=== PATIENT | female | born 2000 | race Caucasian/White ===

== ENCOUNTER 2022-07-02 18:45 | Emergency (ER) | payer BC, MEDICAID, SELFPAY ==
[2022-07-02 19:09] VITALS: BP 117/80; PULSE 97; RESP 16; TEMP 36.6; O2SAT 98
--- NOTE | 2022-07-02 19:46 | W.ED.ABDPA2 ---
Documented by User: THUY Vance 07/02/22 22:12 HPI - Abdominal Pain General: Chief Complaint: Abdominal Pain Stated Complaint: hip/ lower abd pain Time Seen by Provider: 07/02/22 19:45 History of Present Illness: 22-year-old female comes in today with left flank pain radiating into the groin. Patient denies any history of renal stone. Patient denies any history of abdominal surgeries. Patient reports pain started this morning and has had nausea with it. Patient reports no diarrhea or constipation. Patient appears nontoxic. Patient appears in moderate to severe pain. Associated Symptoms: Reports dysuria and nausea Related Data: Date of Last Menstrual Period: 05/30/22 Review of Systems General: Reports: 10 or more systems reviewed and unremarkable except in HPI and below Card: Denies: chest pain Resp: Denies: dyspnea GI: Reports: abdominal pain and nausea : Reports: flank pain and dysuria Musc: Denies: neck pain Skin/Breast: Denies: rash [facility] Female Reproductive History: Date of last menstrual period: 05/30/22 Physical Exam Const: COMMON NORMALS: alert HENMT: COMMON NORMALS: normocephalic HEAD & SCALP: normocephalic Neck/C-Spine: COMMON NORMALS: full ROM Resp: COMMON NORMALS: normal respiratory effort and clear to auscultation bilaterally AUSCULTATION: clear to auscultation bilaterally Cardio: COMMON NORMALS: regular rate RATE: regular rate GI: COMMON NORMALS: Soft to palpation AUSCULTATION: Yes normoactive bowel sounds PALPATION: Yes Soft to palpation, Yes Tenderness to palpation present (GI) (Generalized, moderate), Yes Guarding due to palpation present (GI), No Rigid due to palpation and No Abdominal wall crepitus present : BLADDER/KIDNEY EXAM: Yes CVA tenderness on the left Back/Pelvis: GENERAL BACK: Yes CVA tenderness Extremity: COMMON NORMALS: normal to inspection Neuro: SENSORIUM/ORIENTATION: Yes alert Skin: COMMON NORMALS: no rashes or lesions noted GENERAL SKIN EXAM: no rashes or lesions noted Course ED course: 2114, reviewed patient with Dr. Fulton regarding abnormality noted on CT scan a 20 x 23 cm cystic mass. He recommended we talk to the GLASS EMBOSSER on-call for further recommendations. 2119, discussed patient with Dr. Marte, regarding abnormalities on the CT scan and patient. She suggested discussion with SCOREBOARD OPERATOR oncologist for further recommendations. 220, SCOREBOARD OPERATOR oncologist was unavailable at this time. Patient's pain is much better under control. We will set up patient to have an appointment with Dr. Gupta, SCOREBOARD OPERATOR oncologist, at [phone]. This number was given to me from the call center at [facility]. Patient agreed with plan and understands need to return to the ER for worsening symptoms such as fever, uncontrolled bleeding, or uncontrolled pain. Vital Signs: Vital signs: Vital Signs Temperature 97.9 F 07/02/22 19:09 Pulse Rate 97 07/02/22 19:09 Respiratory Rate 18 07/02/22 20:14 Blood Pressure 117/80 07/02/22 19:09 Pulse Oximetry 98 07/02/22 19:09 Oxygen Delivery Me thod 07/02/22 19:09 MDM - Abdominal Pain Medical Decision Making 22-year-old female comes in today with left lower quadrant abdominal pain. On exam patient has some CVA tenderness on the left side. Respirations are even lungs are clear to auscultation. Abdomen is soft with some mild tenderness and normal bowel sounds. Differential diagnosis includes but not limited to urinary calculi, constipation, ovarian cyst. CBC and CMP were unremarkable. Serum hCG was negative. CT scan of the abdomen pelvis noted a large cystic mass in the abdomen. Reviewed this with Dr. Fulton who felt it was most likely a very large ovarian cyst and recommended discussion with GLASS EMBOSSER. GLASS EMBOSSER, Dr Marte, recommended oncologist SCOREBOARD OPERATOR due to concerns for cancer with such a large cyst. I contacted [facility] whose SCOREBOARD OPERATOR oncologist [facility] but they offered appointment referral. Patient should contact their office on Monday morning for appointment follow-up. Patient reported understanding and agreed to plan. Patient was written prescription for hydrocodone for severe pain. Patient was also recommended use acetaminophen and ibuprofen for management. Patient also understands the reason for follow-up or return for worsening symptoms. Lab Data : 07/02/22 19:50 07/02/22 19:50 Labs/Radiology: Radiology Impressions Abdomen/Pelvis CT 07/02/22 19:56 IMPRESSION: 23 cm cystic lesion cannot be differentiated from the bilateral adnexa and displaces adjacent viscera and vessels extending into the upper abdomen. Ob Gyne consult recommended. Laboratory Results WBC 3.3 10^3/uL (4.5-13.0) L 07/02/22 19:50 RBC 4.42 10^6/uL (4.1-5.3) 07/02/22 19:50 Hgb 13.8 g/dL (11.5-15.3) 07/02/22 19:50 Hct 41.6 % (37.0-47.0) 07/02/22 19:50 MCV 94.1 fl (81-99) 07/02/22 19:50 MCH 31.2 pg (28.0-34.0) 07/02/22 19:50 MCHC 33.2 g/dL (30.0-36.0) 07/02/22 19:50 RDW 13.2 % (12.1-15.1) 07/02/22 19:50 Plt Count 318 10^3/cmm (130-400) 07/02/22 19:50 MPV 10.7 fL (7.4-10.4) H 07/02/22 19:50 Neut % (Auto) 69.1 % 07/02/22 19:50 Lymph % (Auto) 10.6 % 07/02/22 19:50 Houghton % (Auto) 17.9 % 07/02/22 19:50 Eos % (Auto) 1.8 % 07/02/22 19:50 Baso % (Auto) 0.6 % 07/02/22 19:50 Neut # (Auto) 2.28 10^3/uL (1.8-8.0) 07/02/22 19:50 Lymph # (Auto) 0.4 10^3/uL (1.5-6.5) L 07/02/22 19:50 Houghton # (Auto) 0.6 10^3/uL (0.2-0.9) 07/02/22 19:50 Eos # (Auto) 0.1 10^3/uL (0.0-0.8) 07/02/22 19:50 Baso # (Auto) 0.0 10^3/uL (0.0-0.1) 07/02/22 19:50 Nucleated RBC % (auto) 0 % 07/02/22 19:50 Nucleated RBCs # 0.0 /100WBC 07/02/22 19:50 Sodium 136 mmol/L (136-145) 07/02/22 19:50 Potassium 4.2 mmol/L (3.5-5.1) 07/02/22 19:50 Chloride 100 mmol/L (98-107) 07/02/22 19:50 Carbon Dioxide 23 mmol/L (22-29) 07/02/22 19:50 Anion Gap 17.2 (5-19) 07/02/22 19:50 BUN 4 mg/dL (6-20) L 07/02/22 19:50 Creatinine 0.4 mg/dL (0.5-0.9) L 07/02/22 19:50 GFR Calculation 203.5 mL/min (90-130) H 07/02/22 19:50 Glucose 76 mg/dL (65-115) 07/02/22 19:50 Calculated Osmolality 278 mOsm/kg (285-295) L 07/02/22 19:50 Calcium 9.4 mg/dL (8.5-10.5) 07/02/22 19:50 Total Bilirubin 0.5 mg/dL (0.15-1.2) 07/02/22 19:50 AST 19 U/L (0-32) 07/02/22 19:50 ALT 14 U/L (0-33) 07/02/22 19:50 Alkaline Phosphatase 64 IU/L (35-105) 07/02/22 19:50 Total Protein 7.8 g/dL (6.6-8.7) 07/02/22 19:50 Albumin 4.8 g/dL (3.5-5.2) 07/02/22 19:50 Globulin 3.0 g/dL (1.3-4.6) 07/02/22 19:50 Lipase 37 U/L (13-60) 07/02/22 19:50 HCG, Qual Negative (Negative) 07/02/22 19:50 Discharge Plan Discharge Patient Disposition: Home Clinical Impression: Ovarian cystic mass Qualifiers: Laterality: unspecified laterality Qualified Code(s): N83.209 - Unspecified ovarian cyst, unspecified side Condition: Stable Prescriptions: New hydrocodone-acetaminophen 5-325 mg tablet 1 tab PO Q8H PRN (Reason: pain (scale score 7-10)) Qty: 14 0RF Discharge Orders: Discharge ED (Routine); Ordered 07/02/22 Ordered By: Vaibhav Kulkarni Discharge Diet: Usual diet Discharge Activity: Increase activity as tolerated Patient Instructions: Ovarian Cyst (ED) Activity Restrictions/Additional Instructions: Contact Dr. Gupta office, , in [facility] on Monday morning for appointment regarding ovarian mass. State that you were seen in the emergency room tonight and was diagnosed with a large mass to the abdomen and was recommended for follow-up appointment with a women's health oncologist. I will also put a case management referral in to help with appointment. Use acetaminophen and ibuprofen to control pain. Use hydrocodone for severe pain. Return to ER for worsening symptoms such as bleeding more than 1 pad an hour, fever greater than 100.4, or uncontrolled pain. Coding Level of Care Code ED Auto Former Machine Operator for Chg Fwd Exam Comprehensive Documented by User: Nils Fulton MD 07/02/22 22:14 HPI - Abdominal Pain General: Chief Complaint: Abdominal Pain Stated Complaint: hip/ lower abd pain Time Seen by Provider: 07/02/22 19:45 Course Vital Signs: Vital signs: Vital Signs Temperature 97.9 F 07/02/22 19:09 Pulse Rate 97 07/02/22 19:09 Respiratory Rate 18 07/02/22 20:14 Blood Pressure 117/80 07/02/22 19:09 Pulse Oximetry 98 07/02/22 19:09 Oxygen Delivery Me thod 07/02/22 19:09 MDM - Abdominal Pain Medical Decision Making 22-year-old female comes in today with left lower quadrant abdominal pain. On exam patient has some CVA tenderness on the left side. Respirations are even lungs are clear to auscultation. Abdomen is soft with some mild tenderness and normal bowel sounds. Differential diagnosis includes but not limited to urinary calculi, constipation, ovarian cyst. CBC and CMP were unremarkable. Serum hCG was negative. CT scan of the abdomen pelvis noted a large cystic mass in the abdomen. Reviewed this with Dr. Fulton who felt it was most likely a very large ovarian cyst and recommended discussion with GLASS EMBOSSER. GLASS EMBOSSER, Dr Marte, recommended oncologist SCOREBOARD OPERATOR due to concerns for cancer with such a large cyst. I contacted [facility] whose SCOREBOARD OPERATOR oncologist was off tonight but they offered appointment referral. Patient should contact their office on Monday morning for appointment follow-up. Patient reported understanding and agreed to plan. Patient was written prescription for hydrocodone for severe pain. Patient was also recommended use acetaminophen and ibuprofen for management. Patient also understands the reason for follow-up or return for worsening symptoms. Discussed patient with above midlevel and reviewed the films as well and agree with history and physical and plan patient is to return if she has any worsening symptoms and she is to follow-up with Lavelle Marcus in [place]. Lab Data : 07/02/22 19:50 07/02/22 19:50 Labs/Radiology: Radiology Impressions Abdomen/Pelvis CT 07/02/22 19:56 IMPRESSION: 23 cm cystic lesion cannot be differentiated from the bilateral adnexa and displaces adjacent viscera and vessels extending into the upper abdomen. Ob Gyne consult recommended. Laboratory Results WBC 3.3 10^3/uL (4.5-13.0) L 07/02/22 19:50 RBC 4.42 10^6/uL (4.1-5.3) 07/02/22 19:50 Hgb 13.8 g/dL (11.5-15.3) 07/02/22 19:50 Hct 41.6 % (37.0-47.0) 07/02/22 19:50 MCV 94.1 fl (81-99) 07/02/22 19:50 MCH 31.2 pg (28.0-34.0) 07/02/22 19:50 MCHC 33.2 g/dL (30.0-36.0) 07/02/22 19:50 RDW 13.2 % (12.1-15.1) 07/02/22 19:50 Plt Count 318 10^3/cmm (130-400) 07/02/22 19:50 MPV 10.7 fL (7.4-10.4) H 07/02/22 19:50 Neut % (Auto) 69.1 % 07/02/22 19:50 Lymph % (Auto) 10.6 % 07/02/22 19:50 Houghton % (Auto) 17.9 % 07/02/22 19:50 Eos % (Auto) 1.8 % 07/02/22 19:50 Baso % (Auto) 0.6 % 07/02/22 19:50 Neut # (Auto) 2.28 10^3/uL (1.8-8.0) 07/02/22 19:50 Lymph # (Auto) 0.4 10^3/uL (1.5-6.5) L 07/02/22 19:50 Houghton # (Auto) 0.6 10^3/uL (0.2-0.9) 07/02/22 19:50 Eos # (Auto) 0.1 10^3/uL (0.0-0.8) 07/02/22 19:50 Baso # (Auto) 0.0 10^3/uL (0.0-0.1) 07/02/22 19:50 Nucleated RBC % (auto) 0 % 07/02/22 19:50 Nucleated RBCs # 0.0 /100WBC 07/02/22 19:50 Sodium 136 mmol/L (136-145) 07/02/22 19:50 Potassium 4.2 mmol/L (3.5-5.1) 07/02/22 19:50 Chloride 100 mmol/L (98-107) 07/02/22 19:50 Carbon Dioxide 23 mmol/L (22-29) 07/02/22 19:50 Anion Gap 17.2 (5-19) 07/02/22 19:50 BUN 4 mg/dL (6-20) L 07/02/22 19:50 Creatinine 0.4 mg/dL (0.5-0.9) L 07/02/22 19:50 GFR Calculation 203.5 mL/min (90-130) H 07/02/22 19:50 Glucose 76 mg/dL (65-115) 07/02/22 19:50 Calculated Osmolality 278 mOsm/kg (285-295) L 07/02/22 19:50 Calcium 9.4 mg/dL (8.5-10.5) 07/02/22 19:50 Total Bilirubin 0.5 mg/dL (0.15-1.2) 07/02/22 19:50 AST 19 U/L (0-32) 07/02/22 19:50 ALT 14 U/L (0-33) 07/02/22 19:50 Alkaline Phosphatase 64 IU/L (35-105) 07/02/22 19:50 Total Protein 7.8 g/dL (6.6-8.7) 07/02/22 19:50 Albumin 4.8 g/dL (3.5-5.2) 07/02/22 19:50 Globulin 3.0 g/dL (1.3-4.6) 07/02/22 19:50 Lipase 37 U/L (13-60) 07/02/22 19:50 HCG, Qual Negative (Negative) 07/02/22 19:50 Discharge Plan Discharge Patient Disposition: Home Clinical Impression: Ovarian cystic mass Qualifiers: Laterality: unspecified laterality Qualified Code(s): N83.209 - Unspecified ovarian cyst, unspecified side Condition: Stable Prescriptions: New hydrocodone-acetaminophen 5-325 mg tablet 1 tab PO Q8H PRN (Reason: pain (scale score 7-10)) Qty: 14 0RF Discharge Orders: Discharge ED (Routine); Ordered 07/02/22 Ordered By: Vaibhav Kulkarni Discharge Diet: Usual diet Discharge Activity: Increase activity as tolerated Patient Instructions: Ovarian Cyst (ED) Activity Restrictions/Additional Instructions: Contact Dr. Gupta office, , in [facility] on Monday morning for appointment regarding ovarian mass. State that you were seen in the emergency room tonight and was diagnosed with a large mass to the abdomen and was recommended for follow-up appointment with a women's health oncologist. I will also put a case management referral in to help with appointment. Use acetaminophen and ibuprofen to control pain. Use hydrocodone for severe pain. Return to ER for worsening symptoms such as bleeding more than 1 pad an hour, fever greater than 100.4, or uncontrolled pain. Coding Level of Care Code ED Auto Former Machine Operator for Edel Fwrose marie Exam Comprehensive
--- NOTE | 2022-07-02 19:56 | CTR_ITS ---
PROCEDURE INFORMATION: Exam: CT Abdomen And Pelvis Without Contrast Exam date and time: 07/02/2022 8:41 PM Age: 22 years old Clinical indication: Abdominal pain; Acute; Additional info: Left flank pain TECHNIQUE: Imaging protocol: Computed tomography of the abdomen and pelvis without contrast. Radiation optimization: All CT scans at this facility use at least one of these dose optimization techniques: automated exposure control; mA and/or kV adjustment per patient size (includes targeted exams where dose is matched to clinical indication); or iterative reconstruction. COMPARISON: No relevant prior studies available. RADIATION DOSE METRICS: Total DLP (mGy-cm): 707.06 FINDINGS: Liver: Normal. No mass. Gallbladder and bile ducts: Normal. No calcified stones. No ductal dilation. Pancreas: Normal. No ductal dilation. Spleen: Normal. No splenomegaly. Adrenal glands: Normal. No mass. Kidneys and ureters: Normal. No hydronephrosis. Stomach and bowel: Unremarkable. No obstruction. No mucosal thickening. Appendix: No evidence of appendicitis. Intraperitoneal space: There is a 20.3 x 23.0 cm cystic lesion which cannot be differentiated from the bilateral adnexa extending into the upper abdomen displacing adjacent viscera/vessels. Vasculature: Unremarkable. No abdominal aortic aneurysm. Lymph nodes: Unremarkable. No enlarged lymph nodes. Urinary bladder: Unremarkable as visualized. Reproductive: Unremarkable as visualized. Bones/joints: Unremarkable. No acute fracture. Soft tissues: Unremarkable. CT/CT kidney stone [id number] IMPRESSION: 23 cm cystic lesion cannot be differentiated from the bilateral adnexa and displaces adjacent viscera and vessels extending into the upper abdomen. Ob Gyne consult recommended.
[2022-07-02 20:01] LABS: Basophils % 0.6 %; Eosinophils # 0.1 10^3/uL (0.0-0.8); Eosinophils % 1.8 %; Hematocrit 41.6 % (37.0-47.0); Hemoglobin 13.8 g/dL (11.5-15.3); Lymphocytes # 0.4 10^3/uL (1.5-6.5); Lymphocytes % 10.6 %; Mean Corpuscular HGB Conc 33.2 g/dL (30.0-36.0); Mean Corpuscular Hemoglobin 31.2 pg (28.0-34.0); Mean Corpuscular Volume 94.1 fl (81-99); Mean Platelet Volume 10.7 fL (7.4-10.4); Monocytes # 0.6 10^3/uL (0.2-0.9); Monocytes % 17.9 %; Neutrophils # 2.28 10^3/uL (1.8-8.0); Neutrophils % 69.1 %; Nucleated Red Blood Cells % 0 %; Platelet Count 318 10^3/cmm (130-400); Red Blood Count 4.42 10^6/uL (4.1-5.3); Red Cell Distribution Width 13.2 % (12.1-15.1); White Blood Count 3.3 10^3/uL (4.5-13.0)
[2022-07-02] MEDS: ondansetron 2 mg/ML SDV 2 mL 4 MG IVP (20:10)
[2022-07-02] MEDS: ketorolac 30 mg/mL INJ 15 MG IVP (20:11)
[2022-07-02 20:14] VITALS: RESP 18
[2022-07-02] MEDS: morphine 4 mg/mL SDV 1 mL 2 MG IVP (20:14)
[2022-07-02 20:24] LABS: HCG, Serum Qual Negative (Negative)
[2022-07-02 20:31] LABS: Alanine Aminotransferase 14 U/L (0-33); Albumin Level 4.8 g/dL (3.5-5.2); Alkaline Phosphatase 64 IU/L (35-105); Anion Gap 17.2 (5-19); Aspartate Amino Transferase 19 U/L (0-32); Blood Urea Nitrogen 4 mg/dL (6-20); Calcium 9.4 mg/dL (8.5-10.5); Carbon Dioxide 23 mmol/L (22-29); Chloride 100 mmol/L (98-107); Glomerular Filtration Rate 203.5 mL/min (90-130); Glucose 76 mg/dL (65-115); Lipase 37 U/L (13-60); Osmolality Calculated 278 mOsm/kg (285-295); Potassium 4.2 mmol/L (3.5-5.1); Sodium 136 mmol/L (136-145); Total Bilirubin 0.5 mg/dL (0.15-1.2); Total Protein 7.8 g/dL (6.6-8.7)
[2022-07-02 22:20] VITALS: BP 109/66; PULSE 90; RESP 16; O2SAT 99
--- NOTE | 2022-07-04 16:14 | DCPLANNER ---
Addendum entered by January Sorto 07/27/22 12:00: Patient has an appointment scheduled for 07.27.22 at [facility] - Dr. Gupta. Clinic called patient with appointment information. Addendum entered by January Sorto 07/05/22 08:44: administrative office manager confirmed that clinic received patients information Original Note: administrative office manager had message to [facility] a [facility] Dr. Gupta. administrative office manager called clinic, got the fax number and faxed patients information to the clinic, and had images uploaded to the cloud.
== END 2022-07-02 22:21 | disposition home or self-care (01) ==
PROVIDERS: Emergency Medicine; Emergency Provider Nurse Practitioner Family
DX: N83.209 Unspecified ovarian cyst, unspecified side (principal)
CPT/HCPCS: 74176; 80053; 83690; 84703; 85025; 96374; 96375; 99285; J1885; J2270; J2405

== ENCOUNTER 2023-01-13 10:49 | Outpatient (CLI) | payer BC, MEDICAID, SELFPAY ==
--- NOTE | 2023-01-13 11:09 | US_ITS ---
WS: [id number] ULTRASOUND OB COMPLETE TECHNIQUE: Complete ultrasound. CLINICAL INFORMATION: 15 WEEKS GESTATION COMPARISON: None. FINDINGS: Cervix measures 4.1 cm Single interuterine gestation is identified with transverse presentation. Placenta is posterior. Placenta grade 0. Normal amniotic fluid volume. cardiac activity: 144 BPM. Normal JOELLE 18.6 cm AGA: 21w1d ELHAM by ultrasound: 05/25/2023 Estimated weight: 395 g; 0 lbs. 14 oz. 46th percentile based on ultrasound BDP: 4.9 cm = 20w5d HC: 18.4 cm = 20w5d AC: 16.1 cm = 21w1d FEMUR LENGTH: 3.5 cm = 21w0d Anatomic survey: Anatomic survey is normal. Normal stomach. Kidneys and bladder are normal. Normal 3 vessel cord. Norm al 3 vessel cord insertion. Normal 4 chamber heart. Normal spine. Intracranial contents are normal. N ormal posterior fossa and cisterna magna. US/US OB >= 14 weeks fetus [id number] IMPRESSION: 1. Single intrauterine with visualized cardiac activity. AGA 21w1d w ith ELHAM 05/25/2023. 2. Closed cervix measuring 4.1 cm 3. Placenta is posterior. No evidence of abruption or previa. 4. presentation is transverse. 5. anatomic survey is normal. 6. Normal amniotic fluid volume. JOELLE 18.6 cm
== END 2023-01-13 10:50 | disposition home or self-care (01) ==
PROVIDERS: PCP Family Medicine; Visit Provider Family Medicine
DX: Z36.89 Encounter for other specified antenatal screening (principal); Z3A.21 21 weeks gestation of pregnancy
CPT/HCPCS: 76805

== ENCOUNTER 2023-05-14 21:32 | Outpatient (CLI) | payer BC, MEDICAID, SELFPAY ==
[2023-05-14] VITALS (8 sets, daily range): BP systolic 114–115; BP diastolic 69–72; PULSE 100–117; RESP 16; TEMP 36.2; O2SAT 97–98; BMI 39.2
== END 2023-05-14 22:20 | disposition home or self-care (01) ==
LOC: OPOB 21:33 → OBGYN 21:33
PROVIDERS: PCP Family Medicine; Visit Provider Family Medicine
DX: O26.899 Other specified pregnancy related conditions, unspecified trimester (principal); R10.2 Pelvic and perineal pain; R11.0 Nausea; Z3A.00 Weeks of gestation of pregnancy not specified
CPT/HCPCS: 59025; 99211

== ENCOUNTER 2023-05-24 14:47 | Outpatient (CLI) | payer BC, MEDICAID, SELFPAY ==
[2023-05-24 15:10] VITALS: BMI 41.3
[2023-05-24 15:32] VITALS: BP 114/62; PULSE 100
[2023-05-24 15:38] LABS: Basophils % 0.3 %; Eosinophils # 0.1 10^3/uL (0.0-0.8); Eosinophils % 0.5 %; Hemoglobin 11.2 g/dL (11.5-15.3); Lymphocytes # 1.9 10^3/uL (1.5-6.5); Lymphocytes % 17.2 %; Mean Corpuscular HGB Conc 32.9 g/dL (30.0-36.0); Mean Corpuscular Hemoglobin 30.1 pg (28.0-34.0); Mean Corpuscular Volume 91.4 fl (81-99); Mean Platelet Volume 10.4 fL (7.4-10.4); Monocytes # 0.9 10^3/uL (0.2-0.9); Monocytes % 7.9 %; Neutrophils # 8.03 10^3/uL (1.8-8.0); Neutrophils % 73.6 %; Nucleated Red Blood Cells % 0 %; Platelet Count 318 10^3/cmm (130-400); Red Blood Count 3.72 10^6/uL (4.1-5.3); Red Cell Distribution Width 14.4 % (12.1-15.1); White Blood Count 10.9 10^3/uL (4.5-13.0)
[2023-05-24 15:51] VITALS: BP 112/75; PULSE 109
[2023-05-24 15:56] LABS: Bilirubin Urine Neg (Negative); Blood Urine Neg (Negative); Glucose Urine UA Norm (Normal); Ketones Urine Negative (Negative); Leukocyte Esterase Urine Negative (Negative); Nitrate Urine Negative (Negative); Protein Urine Neg (Negative); Specific Gravity, Urine 1.015 (1.005-1.030); Urine Appearance Clear (CLEAR); Urine Color Yellow (Yellow); Urobilinogen Urine Norm (Negative); pH Urine 7 (5-7)
[2023-05-24 16:03] LABS: Alanine Aminotransferase 8 U/L (0-33); Albumin Level 3.8 g/dL (3.5-5.2); Alkaline Phosphatase 125 U/L (35-105); Anion Gap 15.9 (5-19); Aspartate Amino Transferase 14 U/L (0-32); Blood Urea Nitrogen 4 mg/dL (6-20); Calcium 8.6 mg/dL (8.5-10.5); Carbon Dioxide 19 mmol/L (22-29); Chloride 104 mmol/L (98-107); Globulin 2.9 g/dL (1.3-4.6); Glomerular Filtration Rate 283.6 mL/min (90-130); Glucose 66 mg/dL (65-115); Osmolality Calculated 275 mOsm/kg (285-295); Potassium 3.9 mmol/L (3.5-5.1); Sodium 135 mmol/L (136-145); Total Bilirubin 0.4 mg/dL (0.15-1.2); Total Protein 6.7 g/dL (6.6-8.7); Uric Acid 3.6 mg/dL (2.4-5.7)
[2023-05-24 16:09] LABS: Bacteria Urine TRACE /hpf; Mucus Urine TRACE /hpf; RBC Urine 0-4 /hpf (0-2); WBC Urine 0-4 /hpf (0-5)
[2023-05-24 16:10] LABS: Add Urine Culture? No; Amorphous Sediment Urine TRACE /hpf
[2023-05-24 16:11] VITALS: BP 111/68; PULSE 100
[2023-05-24 16:14] LABS: UPRO/UCREAT Ratio 0.19 mg/mg CR; Urine Creatinine 73 mg/dL (28-217); Urine Protein Random 14 mg/dL
[2023-05-24 16:30] VITALS: BP 111/68; PULSE 100
== END 2023-05-24 16:30 | disposition home or self-care (01) ==
LOC: OPOB 14:52 → OBGYN 14:56 → OPOB 15:29 → OBGYN 15:31
PROVIDERS: PCP Family Medicine; Visit Provider Family Medicine
DX: O16.9 Unspecified maternal hypertension, unspecified trimester (principal); Z3A.00 Weeks of gestation of pregnancy not specified
CPT/HCPCS: 36415; 59025; 80053; 81001; 82570; 84156; 84550; 85025; 99211

== ENCOUNTER 2023-05-29 04:32 | Inpatient (IN) | payer MEDICAID, SELFPAY ==
[2023-05-28] VITALS (9 sets, daily range): BP systolic 111–133; BP diastolic 68–83; PULSE 80–105; RESP 15; TEMP 36.7; BMI 40.4
[2023-05-28 21:13] LABS: Basophils % 0.3 %; Eosinophils # 0.1 10^3/uL (0.0-0.8); Eosinophils % 0.9 %; Hematocrit 32.4 % (37.0-47.0); Hemoglobin 10.6 g/dL (11.5-15.3); Lymphocytes # 1.6 10^3/uL (1.5-6.5); Lymphocytes % 19.9 %; Mean Corpuscular HGB Conc 32.7 g/dL (30.0-36.0); Mean Corpuscular Hemoglobin 29.7 pg (28.0-34.0); Mean Corpuscular Volume 90.8 fl (81-99); Mean Platelet Volume 10.3 fL (7.4-10.4); Monocytes # 0.8 10^3/uL (0.2-0.9); Monocytes % 9.6 %; Neutrophils # 5.51 10^3/uL (1.8-8.0); Nucleated Red Blood Cells % 0 %; Platelet Count 296 10^3/cmm (130-400); Red Blood Count 3.57 10^6/uL (4.1-5.3); Red Cell Distribution Width 14.3 % (12.1-15.1)
[2023-05-28] MEDS: miSOPROStol 100 mcg tablet 25 MCG VAGINAL (21:37)
[2023-05-28] MEDS: dextrose 5%-lactated ringers 1,000 ML 125 ML IV (23:22)
[2023-05-28] MEDS: ampicillin 2,000 MG in sodium chloride 0.9% (plus) 50 ML 100 MG IV (23:23)
[2023-05-29] VITALS (193 sets, daily range): BP systolic 105–172; BP diastolic 62–96; PULSE 72–125; TEMP 36.3–36.9; O2SAT 85–99
[2023-05-29] MEDS: miSOPROStol 100 mcg tablet 25 MCG VAGINAL (01:54)
[2023-05-29] MEDS: ampicillin 1,000 MG in sodium chloride 0.9% (plus) 50 ML 100 MG IV ×5 (03:30→22:12)
[2023-05-29] MEDS: lactated ringers 1,000 ML 999 ML IV ×2 (04:40→05:44)
--- NOTE | 2023-05-29 06:23 | ANES.PREANE2 ---
Pre-Anesthetic Assessment Height/Weight: Height 1.55 m Weight 97.069 kg Temp Pulse Resp BP O2 Del Method 98.4 F 87 15 128/65 Room Air 05/29/23 03:45 05/29/23 03:34 05/28/23 20:47 05/29/23 03:34 05/28/23 21:00 Preop Diagnosis: IUP Labor epidural Familial anesthetic complications: None Was Beta Deni taken within 24 hours: N/A Was Clonidine taken within 24 hours: N/A Social Tobacco (1/2 ppd x 4 years ) and No alcohol Exam alert, oriented x 3, clear to auscultation bilaterally and regular rate & rhythm Airway Submandibular: within normal limits Cervical ROM: within normal limits Mallampati: Class III Dentition: full History/ROS No significant history except as noted Pulmonary None reported CV/HEM Hypertension None reported Hepatic None reported GI None reported Metabolic Morbid Obesity [facility] [place] None reported Neuropsych None reported Anesthetic Plan ASA status: 2 Anesthesia: Anesthesia Evaluation and Regional (specify below) (epidural ) Risk of > 500 ml blood loss (7ml/kg in children): No Medications/Allergies Home Medications Medication Instructions Recorded Confirmed Last Taken Type 1 tab PO DAILY 05/14/23 05/28/23 05/26/23 History Allergies Allergy/AdvReac Type Severity Reaction Status Date / Time ibuprofen Allergy Unknown ADR-Halluci Verified 05/28/23 21:18 nating Current Medications Generic Name Dose Route Start Last Admin Trade Name Freq PRN Reason Stop Dose Admin Dextrose/Lactated Ringer's 1,000 mls @ 125 mls/hr 05/28/23 21:00 05/28/23 23:22 Dextrose 5%-Lactated Ringers IV 125 mls/hr .Q8H LEELA Administration Ampicillin Sodium 1,000 mg/ 50 mls @ 100 mls/hr 05/29/23 01:45 05/29/23 03:30 Sodium Chloride IV 100 mls/hr Q4H LEELA Administration Protocol Lactated Ringer's 1,000 mls @ 999 mls/hr 05/29/23 04:31 05/29/23 05:44 Lactated Ringers IV 999 mls/hr .Q1H1M PRN Administration See label comments PFSH Anesthesia Female Reproductive History Date of last menstrual period: 08/27/22 : 2 Data Anesthesia 05/28/23 21:00 Short CBC 07/02/23 Range/Units 21:00 WBC 8.0 (4.5-13.0) 10^3/uL Hgb 10.6 L (11.5-15.3) g/dL Hct 32.4 L (37.0-47.0) % MCV 90.8 (81-99) fl Plt Count 296 (130-400) 10^3/cmm Neut % (Auto) 69.0 % Neut # (Auto) 5.51 (1.8-8.0) 10^3/uL Cardiac Studies: No Data to Display Anesthesia Procedures Epidural Time Out Performed: Yes Consents Signed: Procedure Consent Consent: requested by attending/covering physician, from patient, risks and benefits reviewed and patient agrees to proceed Lumbar Level: L4-L5 Epidural position: sitting Epidural procedure: sterile prep of area, 1% lidocaine to numb the area, 18 g needle, negative for paresthesia passed, neg for paresthesia, test dose given, 1.5% xylocaine 1:200k epi, placed PCEA, no systemic response, sterile dressing applied, L.U.D. no apparent complications and 0.2% Ropiavacaine @ mls/hr (10) Additional Comments: LULU 6 cm; Pt educated on GRINDER TENDER and reports decreased pain with contractions.
--- NOTE | 2023-05-29 07:29 | P.HP_ITS ---
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 The patient had unremarkable labs. Patient's has been uncomplicated except for some elevated blood pressures towards the end but nothing sustained. Preeclampsia work-up has been negative. The patient is GBS positive. Patient was started on ampicillin and given 2 d oses of Cytotec overnight. The patient did develop a contraction pattern every 3 to 4 minutes. The patient did become more effaced but never dilated more than 1 cm. Patient currently has an epidural and is luisito every 3 to 4 minutes at this time. Present Details : 2 Para: 0 Date of Last Menstrual Period: 08/27/22 Calculated Date of Delivery: 06/03/23 Gestational Age Based on Last Menstrual Period: 39 Obstetrical complications: none Labs Rubella: Immune RPR: Negative GBS: Positive Review of Systems General: Reports: 10 or more systems reviewed and unremarkable except in HPI and below Card: Denies: chest pain Resp: Denies: dyspnea Musc: Denies: neck pain Skin/Breast: Denies: rash Medications/Allergies Home Medications Medication Instructions Recorded Confirmed Last Taken Type 1 tab PO DAILY 05/14/23 05/28/23 05/26/23 History Allergies Allergy/AdvReac Type Severity Reaction Status Date / Time ibuprofen Allergy Unknown ADR-Halluci Verified 05/28/23 21:18 nating History History History 2 Term Miscarriages/Ectopic Living Children 0 Vitals/I&O/Wt Last Vital Signs Temp 98.4 F 05/29/23 03:45 Pulse 108 H 05/29/23 07:25 Resp 15 05/28/23 20:47 BP 136/78 05/29/23 07:25 Pulse Ox 96 05/29/23 07:22 O2 Del Method Room Air 05/28/23 21:00 05/28/23 05/29/23 05/29/23 22:59 06:59 14:59 Intake Total 1000 / 1000 Balance 1000 / 1000 Weight last 48 hrs Weight 97.069 kg Physical Exam Const: COMMON NORMALS: no acute distress and alert HENMT: COMMON NORMALS: normocephalic and moist oral mucous membranes Resp: COMMON NORMALS: normal respiratory effort and clear to auscultation bilaterally Cardio: COMMON NORMALS: no JVD, regular rate and regular rhythm GI: OTHER: Gravid : COMMON NORMALS: Yes normal external appearance Extremity: COMMON NORMALS: no clubbing, cyanosis or edema Neuro: COMMON NORMALS: patient oriented x3 and moves all extremities Psych: COMMON NORMALS: mental status grossly normal and normal affect Skin: COMMON NORMALS: no rashes or lesions noted Data 05/28/23 21:00 A&P Assessment and plan (1) Term : Continue induction. Monitor for progression at this time. Add Pitocin if cervical change is not noted. (2) GBS (group B Streptococcus carrier), +RV culture, currently : Continue ampicillin Attestations Medical Necessity Statement*: Admit for induction of labor. Anticipate at least 2 midnight stay. Coding Level of Care Code Acute Code for Chg Fwd Diagnoses Term Z34.90 GBS (group B Streptococcus carrier), +RV culture, currently O99.820
[2023-05-29] MEDS: dextrose 5%-lactated ringers 1,000 ML 125 ML IV ×2 (13:24→22:10)
[2023-05-30] VITALS (25 sets, daily range): BP systolic 122–162; BP diastolic 70–112; PULSE 76–112; RESP 16–18; TEMP 36.7–36.8; O2SAT 97–99
[2023-05-30] MEDS: ceFAZolin 2,000 MG in sodium chloride 0.9% (plus) 50 ML 100 MG IV (00:24)
[2023-05-30] MEDS: citric acid-sodium citrate 30 mL UDC PO (00:24)
[2023-05-30] MEDS: metoclopramide 5 mg/mL SDV 2 mL 10 MG IVP (00:24)
[2023-05-30] MEDS: famotidine 20 mg/2 mL INJ IVP (00:25)
[2023-05-30] MEDS: lidocaine 2% INJ 20 mL INJECTION (01:48)
--- NOTE | 2023-05-30 02:18 | P.ANESUD_ITS ---
Pre-Anesthetic Update Pre-Anesthetic Assessment: Date of Surgery/Procedure: 05/30/23 Preop Patti gnosis: IUP Proposed Procedure: Operation Date: 05/30/23 00:50 Proposed Procedures p Section(Not Applicable) - Srinivasan Lee MD Any changes to Pre-Anesthetic Assessment?: No Changes from Pre-Anesthetic Assessment: NO changes Section discussed epidural use discussed along with possibility of GA. Last Intake: 05/29/23 0300 Labs Last 48hrs: Short CBC 05/28/23 Range/Units 21:00 WBC 8.0 (4.5-13.0) 10^3/ uL Hgb 10.6 L (11.5-15.3) g/dL Hct 32.4 L (37.0-47.0) % MCV 90.8 (81-99) fl Plt Count 296 (130-400) 10^3/c mm Neut % (Auto) 69.0 % Neut # (Auto) 5.51 (1.8-8.0) 10^3/u L Vitals: Temperature 97.3 F L 05/29/23 20:00 Temperature Source Axillary 05/29/23 03:45 Pulse Rate 112 H 05/30/23 00:35 Pulse Rhythm Regular 05/29/23 20:00 Respiratory Rate 15 05/28/23 20:47 Respiratory Effort Spontaneous, Non- Labored 05/29/23 20:00 Respiratory Depth Normal 05/29/23 20:00 Respiratory Patter n Normal 05/29/23 20:00 Blood Pressure 127/78 05/30/23 00:35 Pulse Oximetry 97 05/29/23 14:27 Oxygen Delivery Me thod Room Air 05/28/23 21:00 Cardiac Studies: No Data to Display
[2023-05-30] MEDS: dextrose 5%-lactated ringers 1,000 ML 125 ML IV ×2 (05:36→14:14)
[2023-05-30] MEDS: ketorolac 30 mg/mL INJ IVP ×3 (07:42→20:50)
[2023-05-30] MEDS: ferrous sulfate EC 325 mg Tablet PO ×2 (07:43→18:08)
[2023-05-30] MEDS: docusate sodium 100 mg Capsule PO ×2 (07:44→18:08)
[2023-05-30] MEDS: prenatal vitamin Capsule 1 CAP PO (07:44)
--- NOTE | 2023-05-30 09:49 | PM.OP ---
Operative Report Date of procedure: May 30, 2023 Pre-op diagnosis: Term intrauterine , failure to progress Preop Diagnosis IUP Post-op diagnosis: same Post-op findings: Viable female Procedure done: Primary low transverse Surgeon: Harry Lee MD Robotics Specialist: Dr. Fortune Anesthesia: Epidural and Other Estimated blood loss (mL): 400 Complications: None Brief History: This is a 22-year-old G2, P1 that presented for induction of labor at 39 weeks 2 days. Patient was started on Cytotec and received Pitocin all day. Patient mated to complete dilation but was unable to progress any further. Like outlet was sadly too small to deliver vaginally so was determined to be the best option. Procedure: Patient was taken to the operating room where epidural anesthesia was found to be adequate. She was prepped and draped in the normal sterile fashion in a dorsal supine position with a leftward tilt. Skin incision was made with scalpel and carried out to the underlying layer of fascia which was incised in the midline. Fascial incision was then extended laterally manually. The superior aspect of the fascial incision was grasped with Mykel clamps elevated and dissected off the rectus muscles with Moreno's. The inferior aspect of the fascial incision was grasped with Adolfo's and in likewise manner was elevated and dissected off with Moreno's. Peritoneum was then entered digitally and extended with good visualization of the bladder. Daniela O retractor was inserted. Uterine incision was then created in a transverse fashion in the lower uterine segment with scalpel and extended digitally. Clear fluid noted. Infant's head was delivered atraumatically nose and mouth suctioned with bulb, cord clamped and cut and handed off to waiting nursing staff. The placenta was then expressed and uterus exteriorized from the abdomen. And cleared of all clots and debris. Uterus was noted to be boggy and manual massage was performed. 1 g of TXA was also administered. Uterine incision was then repaired in a running locked fashion with 0 Vicryl. A second suture of the same was then used to imbricate the incision. Excellent hemostasis was noted. Uterus was then returned to the abdomen, gutters were cleared of all clots and debris. . Fascia was then closed with 0 Vicryl in a running fashion. Subcutaneous tissue was closed with 3-0 Vicryl and skin was closed with 4-0 Monocryl on a Adryan needle. The incision was reinforced with Steri-Strips and pressure bandage was placed over the wound. Sponge, laps, and needle count was correct x2. 2 g Ancef was given prior to the procedure. Patient was taken recovery in stable condition.
--- NOTE | 2023-05-30 09:54 | P.PN_ITS ---
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 Patient was initially presented for induction of labor but was failure to progress. Therefore, was decided to be the best option for delivery. She underwent primary low-transverse without complication. The patient has recovered well and bleeding and pain are well controlled. Is up sitting in a chair today. No significant concerns this morning. Vital signs stable. Labor: Station: 0 Amniotic Membrane Status: Ruptured Monitor Mode: External Contraction Pattern: Irregular Vitals/I&O/Wt Last Vital Signs Temp 98.3 F 05/30/23 04:05 Pulse 80 05/30/23 04:35 Resp 16 05/30/23 04:35 BP 140/82 05/30/23 04:35 Pulse Ox 97 05/30/23 02:45 O2 Del Method Room Air 05/30/23 02:45 05/29/23 05/30/23 05/30/23 22:59 06:59 14:59 Intake Total 1230.00 / 8985.503 6791.434 / 3477.651 Output Total 475 / 475 1250 / 1725 100 / 100 Balance 755.00 / 1269.217 483.434 / 1752.651 -100 / -100 Weight last 48 hrs Weight 97.069 kg Physical Exam Const: COMMON NORMALS: no acute distress, patient oriented x3 and alert HENMT: COMMON NORMALS: normocephalic and moist oral mucous membranes HEAD & SCALP: normocephalic Neck/C-Spine: COMMON NORMALS: no JVD Resp: COMMON NORMALS: normal respiratory effort and clear to auscultation bilaterally AUSCULTATION: clear to auscultation bilaterally Cardio: COMMON NORMALS: no JVD, regular rate and regular rhythm RATE: regular rate RHYTHM: regular rhythm GI: COMMON NORMALS: Soft to palpation PALPATION: Yes Soft to palpation Extremity: COMMON NORMALS: no clubbing, cyanosis or edema Neuro: COMMON NORMALS: patient oriented x3 and moves all extremities SENSORIUM/ORIENTATION: Yes alert Psych: COMMON NORMALS: mental status grossly normal and normal affect Skin: WOUNDS: Yes surgical site (Pressure dressing in place without significant drainage noted) Urinary Catheter Management: Hogan: Cath Placed During This Visit: yes, but has since been removed by the nurse Reason for Continuing Indwelling Catheter: Accurate Measurement of Urinary Output in Critically Ill Patients Urinary Catheter Date of Insertion: 05/30/23 Urinary Catheter Time of Insertion: 00:30 Date Urinary Catheter Removed: 05/29/23 Time Urinary Catheter Discontinued: 23:29 Data 05/28/23 21:00 A&P Assessment and plan (1) delivery, delivered, current hospitalization: Continue with routine post care. Patient's pain is well controlled currently. Attestations Medical Necessity Statement*: Patient will stay for minimum of 48 hours post surgery. Coding Level of Care Code Acute Code for Chg Fwd Diagnoses delivery, delivered, current hospitalization O82
[2023-05-30 14:37] LABS: Hematocrit 24.3 % (37.0-47.0); Hemoglobin 7.9 g/dL (11.5-15.3); Mean Corpuscular HGB Conc 32.5 g/dL (30.0-36.0); Mean Corpuscular Hemoglobin 29.6 pg (28.0-34.0); Mean Platelet Volume 10.5 fL (7.4-10.4); Platelet Count 210 10^3/cmm (130-400); Red Blood Count 2.67 10^6/uL (4.1-5.3); Red Cell Distribution Width 14.5 % (12.1-15.1)
--- NOTE | 2023-05-30 15:57 | ANE.PACU2 ---
Inpatient post-anesthesia follow up: Airway intact: Yes Vital signs: Temperature 98.3 F Pulse Rate 80 Respiratory Rate 16 Blood Pressure 140/82 Pulse Oximetry 97 Oxygen Delivery Me thod Room Air Oxygen Flow Rate Fraction of Inspir ed Oxygen Hydration adequate: Yes Nausea and vomiting: No Pain level: 2 Mental status: Baseline
[2023-05-30] MEDS: simethicone 80 mg Chew PO (20:50)
[2023-05-31 04:00] VITALS: BP 125/81; PULSE 94; RESP 18; TEMP 36.8; O2SAT 97
[2023-05-31] MEDS: simethicone 80 mg Chew PO (04:50)
[2023-05-31 07:45] VITALS: BP 145/91; PULSE 94; RESP 18; TEMP 36.7
--- NOTE | 2023-05-31 07:50 | P.PN_ITS ---
HOSPITAL ADMISSIONS OFFICER Subjective Subjective: Interval history: This is a 22-year-old G2, P1 that is postop day 2 from primary low-transverse C- section. Patient has been up out of bed ambulating without difficulty. Pain is adequately controlled. Lochia is appropriate. Patient expresses no concerns today. Labor: Station: 0 Amniotic Membrane Status: Ruptured Monitor Mode: External Contraction Pattern: Irregular Vitals/I&O/Wt Last Vital Signs Temp 98.3 F 05/31/23 04:00 Pulse 94 05/31/23 04:00 Resp 18 05/31/23 04:00 BP 125/81 05/31/23 04:00 Pulse Ox 97 05/31/23 04:00 O2 Del Method Room Air 05/31/23 04:00 05/30/23 05/31/23 05/31/23 22:59 06:59 14:59 Intake Total 720.833 / 1720.833 Output Total 300 / 600 Balance 420.833 / 1120.833 Physical Exam Const: COMMON NORMALS: no acute distress, patient oriented x3 and alert HENMT: COMMON NORMALS: normocephalic and moist oral mucous membranes HEAD & SCALP: normocephalic Neck/C-Spine: COMMON NORMALS: no JVD Resp: COMMON NORMALS: normal respiratory effort and clear to auscultation bilaterally AUSCULTATION: clear to auscultation bilaterally Cardio: COMMON NORMALS: no JVD, regular rate and regular rhythm RATE: regular rate RHYTHM: regular rhythm GI: COMMON NORMALS: Soft to palpation PALPATION: Yes Soft to palpation Extremity: COMMON NORMALS: no clubbing, cyanosis or edema Neuro: COMMON NORMALS: patient oriented x3 and moves all extremities SENSORIUM/ORIENTATION: Yes alert Psych: COMMON NORMALS: mental status grossly normal and normal affect Skin: WOUNDS: Yes surgical site (Wound is clean dry and intact ) Details: malodorous Urinary Catheter Management: Hogan: Cath Placed During This Visit: yes, but has since been removed by the nurse Reason for Continuing Indwelling Catheter: Decision to DC Catheter Urinary Catheter Date of Insertion: 05/30/23 Urinary Catheter Time of Insertion: 00:30 Date Urinary Catheter Removed: 05/30/23 Time Urinary Catheter Discontinued: 16:15 Data 05/30/23 Unknown A&P Assessment and plan (1) delivery, delivered, current hospitalization: Patient is recovering well from surgery. No concerns today. Continue routine care. Attestations Medical Necessity Statement*: Anticipate discharge tomorrow. Coding Level of Care Code Acute Code for Chg Fwd Diagnoses delivery, delivered, current hospitalization O82
[2023-05-31] MEDS: prenatal vitamin Capsule 1 CAP PO (09:49)
[2023-05-31] MEDS: docusate sodium 100 mg Capsule PO ×2 (09:49→22:26)
[2023-05-31] MEDS: ferrous sulfate EC 325 mg Tablet PO ×2 (09:50→22:26)
[2023-05-31 19:00] VITALS: BP 126/80; PULSE 89; RESP 18; TEMP 36.8
[2023-05-31 22:28] VITALS: BP 125/82; PULSE 89; RESP 15; TEMP 36.8; O2SAT 96
[2023-06-01 04:00] VITALS: BP 128/85; PULSE 92; RESP 16; TEMP 37.1
--- NOTE | 2023-06-01 07:32 | PM.OBGYDC ---
Discharge Providers CERTIFICATION AND SELECTION SPECIALIST Date of Admission: 05/29/23 04:32 Date of Discharge: 06/01/23 Attending Provider at Admission: Srinivasan Lee MD Attending Provider at Discharge: Srinivasan Lee MD Primary Care Provider: Amber Cardenas MD Diagnoses at Discharge Discharge Diagnosis (1) delivery, delivered, current hospitalization: Status: Acute Reason for Visit Reason for Visit: induction Hospital Course Hospital Course This is a 22-year-old G2, P1 that presented for elective induction of labor. Patient was started on Cytotec and started in a good contraction pattern, however the contractions were not significant to make cervical change so Pitocin was added. Patient continued to slowly progress over throughout the day. The patient finally made complete dilation pushing was started and no significant progress was made. She was diagnosed with failure to progress and primary low-transverse was elected to proceed. Patient underwent primary low transverse without complication. Patient is not had no postop complications so far. Patient is recovered well. care has otherwise been unremarkable. Information Peripartum Data: Infant Delivery Method: Physical Exam Const: COMMON NORMALS: no acute distress, patient oriented x3 and alert HENMT: COMMON NORMALS: normocephalic and moist oral mucous membranes HEAD & SCALP: normocephalic Neck/C-Spine: COMMON NORMALS: no JVD Resp: COMMON NORMALS: normal respiratory effort and clear to auscultation bilaterally AUSCULTATION: clear to auscultation bilaterally Cardio: COMMON NORMALS: no JVD, regular rate and regular rhythm RATE: regular rate RHYTHM: regular rhythm GI: COMMON NORMALS: Soft to palpation PALPATION: Yes Soft to palpation Extremity: COMMON NORMALS: no clubbing, cyanosis or edema Neuro: COMMON NORMALS: patient oriented x3 and moves all extremities SENSORIUM/ORIENTATION: Yes alert Psych: COMMON NORMALS: mental status grossly normal and normal affect Skin: WOUNDS: Yes surgical site (Wound is clean dry and intact ) Details: malodorous Urinary Catheter Management: Hogan: Cath Placed During This Visit: yes, but has since been removed by the nurse Reason for Continuing Indwelling Catheter: Decision to DC Catheter Urinary Catheter Date of Insertion: 05/30/23 Urinary Catheter Time of Insertion: 00:30 Date Urinary Catheter Removed: 05/30/23 Time Urinary Catheter Discontinued: 16:15 History History History 2 Term Miscarriages/Ectopic Living Children 1 Discharge Data Studies Completed and Pending Laboratory Results WBC 10.0 10^3/uL (4.5-13.0) 05/30/23 Unknown RBC 2.67 10^6/uL (4.1-5.3) L 05/30/23 Unknown Hgb 7.9 g/dL (11.5-15.3) L 05/30/23 Unknown Hct 24.3 % (37.0-47.0) L 05/30/23 Unknown MCV 91.0 fl (81-99) 05/30/23 Unknown MCH 29.6 pg (28.0-34.0) 05/30/23 Unknown MCHC 32.5 g/dL (30.0-36.0) 05/30/23 Unknown RDW 14.5 % (12.1-15.1) 05/30/23 Unknown Plt Count 210 10^3/cmm (130-400) 05/30/23 Unknown MPV 10.5 fL (7.4-10.4) H 05/30/23 Unknown Neut % (Auto) 69.0 % 05/28/23 21:00 Lymph % (Auto) 19.9 % 05/28/23 21:00 [place] % (Auto) 9.6 % 05/28/23 21:00 Eos % (Auto) 0.9 % 05/28/23 21:00 Baso % (Auto) 0.3 % 05/28/23 21:00 Neut # (Auto) 5.51 10^3/uL (1.8-8.0) 05/28/23 21:00 Lymph # (Auto) 1.6 10^3/uL (1.5-6.5) 05/28/23 21:00 [place] # (Auto) 0.8 10^3/uL (0.2-0.9) 05/28/23 21:00 Eos # (Auto) 0.1 10^3/uL (0.0-0.8) 05/28/23 21:00 Baso # (Auto) 0.0 10^3/uL (0.0-0.1) 05/28/23 21:00 Nucleated RBC % (auto) 0 % 05/28/23 21:00 Nucleated RBCs # 0.0 /100WBC 05/28/23 21:00 Vitals Last Vital Signs Temp 98.7 F 06/01/23 04:00 Pulse 92 06/01/23 04:00 Resp 16 06/01/23 04:00 BP 128/85 06/01/23 04:00 Pulse Ox 96 05/31/23 22:28 O2 Del Method Room Air 06/01/23 04:00 Discharge Plan Discharge Patient Disposition: Home Condition: Stable Prescriptions: New hydrocodone-acetaminophen 5-325 mg Tablet 1 - 2 tab PO Q4H PRN (Reason: Moderate To Severe Pain) Qty: 20 0RF Continued 1 tab PO DAILY Discharge Orders: Discharge Order (Routine); Ordered 06/01/23 Ordered By: Srinivasan Lee Referrals: Srinivasan Lee MD [Physician] - 7-10 days Discharge Diet: Usual diet Discharge Activity: Limit activity as instructed Patient Instructions: Opioid Safety Discharge Attestations CERTIFICATION AND SELECTION SPECIALIST Time Spent in Discharge Care*: less than 30 min Coding Level of Care Code Acute Code for Chg Fwd Diagnoses delivery, delivered, current hospitalization O82
[2023-06-01 09:15] VITALS: BP 128/84; PULSE 95; RESP 14; O2SAT 98
[2023-06-01] MEDS: docusate sodium 100 mg Capsule PO (09:15)
[2023-06-01] MEDS: ferrous sulfate EC 325 mg Tablet PO (09:15)
[2023-06-01] MEDS: prenatal vitamin Capsule 1 CAP PO (09:15)
== END 2023-06-01 09:45 | disposition home or self-care (01) | DRG 788 ==
LOC: OPOB 04:33 → OBGYN 04:33
PROVIDERS: Admitting Provider Family Medicine; PCP Family Medicine; Visit Provider Family Medicine
PROC: 10D00Z1 Extraction of Products of Conception, Low, Open Approach (ICD-10-PCS; CPT 59514; principal; 2023-05-30 00:50)
DX: O66.40 Failed trial of labor, unspecified (principal); Z3A.39 39 weeks gestation of pregnancy; Z37.0 Single live birth; O99.334 Smoking (tobacco) complicating childbirth; F17.210 Nicotine dependence, cigarettes, uncomplicated; O99.824 Streptococcus B carrier state complicating childbirth
CPT/HCPCS: 36415; 51702; 59025; 59409; 85025; 85027; 96374; 96375; 96376; 99211; J0290; J0690; J1885; J2371; J2400; J2405; J2590; J2765; J2795; J3010; J3490; J7030; J7040; J7120; J7121

== ENCOUNTER 2024-08-27 19:25 | Outpatient (CLI) | payer MEDICAID, SELFPAY ==
[2024-08-27 19:25] VITALS: BMI 39.1
[2024-08-27 19:39] VITALS: BP 110/67; PULSE 95
[2024-08-27 20:00] VITALS: BP 117/70; PULSE 90
--- NOTE | 2024-08-27 20:03 | USR_ITS ---
PROCEDURE INFORMATION: Exam: US Biophysical Profile Without Non-Stress Test Exam date and time: 08/27/2024 8:25 PM Age: 24 years old Clinical indication: Other: Non-reactive nst; ; Prior surgery; Surgery date: 6+ months; Surgery type: Csection; Additional info: Nst gdm TECHNIQUE: Imaging protocol: US biophysical profile without non-stress testing. COMPARISON: US OB >= 14 weeks fetus [id number] 04/24/2024 1:29 PM FINDINGS: heart rate: 145 bpm presentation and position: Cephalic Placenta: Anterior grade 2 placenta without previa. Amniotic fluid index: JOELLE is 18.27 cm. BIOPHYSICAL PROFILE: breathing (BPP): 2 /2 gross body movement (BPP): 2 /2 tone (BPP): 2 /2 Amniotic fluid (BPP): 2 /2 Biophysical profile score (BPP): 8 /8 MATERNAL ANATOMY: Cervix: Cervical length measures 4.9 cm. US/US OB BPP wo NST [id number] IMPRESSION: 1. Biophysical profile 8/8. 2. Normal heart rate.
[2024-08-27 20:20] VITALS: BP 110/63; PULSE 82
[2024-08-27 20:55] VITALS: BP 118/71; PULSE 81
== END 2024-08-27 20:55 | disposition home or self-care (01) ==
LOC: OPOB 19:29 → OBGYN 19:30
PROVIDERS: PCP Family Medicine; Visit Provider Family Medicine
DX: O26.899 Other specified pregnancy related conditions, unspecified trimester (principal); Z3A.00 Weeks of gestation of pregnancy not specified
CPT/HCPCS: 59025; 76819

== ENCOUNTER 2024-09-05 05:13 | Inpatient (IN) | payer MEDICAID, SELFPAY ==
[2024-09-05] VITALS (57 sets, daily range): BP systolic 100–125; BP diastolic 56–74; PULSE 60–94; RESP 16–18; TEMP 35.3–36.9; O2SAT 96–99; BMI 32.1
[2024-09-05 05:43] LABS: Basophils % 0.1 %; Eosinophils # 0.1 10^3/uL (0.0-0.8); Eosinophils % 0.8 %; Hematocrit 32.7 % (36-47); Lymphocytes # 1.9 10^3/uL (0.8-4.8); Mean Corpuscular HGB Conc 32.1 g/dL (30-55); Mean Corpuscular Hemoglobin 27.9 pg (27-33); Monocytes # 0.7 10^3/uL (0.2-0.9); Monocytes % 7.9 %; Neutrophils # 5.96 10^3/uL (1.8-7.7); Nucleated Red Blood Cells % 0 %; Platelet Count 335 10^3/cmm (157-399); Red Blood Count 3.76 10^6/uL (3.85-5.65); Red Cell Distribution Width 15.9 % (12.1-15.1); White Blood Count 8.64 10^3/uL (3.29-11.43)
[2024-09-05] MEDS: lactated ringers 1,000 ML 999 ML IV (06:16)
[2024-09-05 06:24] LABS: Glucose Point of Care 104 mg/dL (70-110)
--- NOTE | 2024-09-05 06:47 | P.ANESASSM_ITS ---
Pre-Anesthetic Assessment Height/Weight: Height 1.55 m Weight 77.111 kg Temp Pulse Resp BP O2 Del Method 98.4 F 83 18 117/74 Room Air 09/05/24 05:20 09/05/24 06:03 09/05/24 05:20 09/05/24 06:03 09/05/24 05:50 Preop Diagnosis: Term Operation Date: 09/05/24 07:20 Proposed Procedures p Section Repeat With bilateral Tubal(Bilateral) - Srinivasan Lee MD Familial anesthetic complications: none Was Beta Deni taken within 24 hours: N/A Was Clonidine taken within 24 hours: N/A Last intake: Intake Last Liquid Date 09/04/24 Last Liquid Time 21:00 Last Solid Date 09/04/24 Last Solid Time 21:00 Social Tobacco and No alcohol 1 PPD pack(s) per day Exam alert, oriented x 3, clear to auscultation bilaterally and regular rate & rhythm Airway Submandibular: within normal limits Cervical ROM: within normal limits Mallampati: Class II Dentition: full History/ROS No significant history except as noted and No significant complaints Pulmonary None reported CV/HEM None reported None reported Hepatic None reported GI None reported Metabolic Diabetes Mellitus Gestational Musc/skel None reported Neuropsych None reported Anesthetic Plan ASA status: 2 Anesthesia: Regional (specify below) Other: Spinal Risk of > 500 ml blood loss (7ml/kg in children): No Medications/Allergies Home Medications Medication Instructions Recorded Confirmed Last Taken Type cetirizine 10 mg tablet (Zyrtec) 10 mg PO DAILY PRN allergy 04/18/24 09/05/24 Unknown Rx symptoms #20 tabs fluticasone propionate 50 2 spray intranasal DAILY PRN 04/18/24 09/05/24 Unknown Rx mcg/actuation nasal allergy symptoms #16 grams spray,suspension (Flonase Allergy Relief) guaifenesin 200 mg tablet 200 mg PO QID PRN cough #60 tabs 04/18/24 09/05/24 Unknown Rx Allergies Allergy/AdvReac Type Severity Reaction Status Date / Time ibuprofen Allergy Unknown ADR-Halluci Verified 09/05/24 05:53 nating Current Medications Generic Name Dose Route Start Last Admin Trade Name Freq PRN Reason Stop Dose Admin Lactated Ringer's 1,000 mls @ 999 mls/hr 09/05/24 06:00 09/05/24 06:16 Lactated Ringers IV 09/05/24 07:00 999 mls/hr .Q1H1M ONE Administration PFSH Anesthesia Female Reproductive History : 3 Data Anesthesia 09/05/24 05:36 Short CBC 09/05/24 Range/Units 05:36 WBC 8.64 (3.29-11.43) 10^3/uL Hgb 10.50 L (11.27-16.99) g/dL Hct 32.7 L (36-47) % MCV 87.0 (85-98) fl Plt Count 335 (157-399) 10^3/cmm Neut % (Auto) 69.0 % Neut # (Auto) 5.96 (1.8-7.7) 10^3/uL Blood Bank 09/05/24 05:36 Blood Type O Positive Rho(D) Type Rh positive Antibody Screen Negative Cardiac Studies: 2 No Data to Display
--- NOTE | 2024-09-05 06:50 | P.HP_ITS ---
Providers/Chief Complaint 2 Admitting Physician: Srinivasan Lee MD Primary Care Provider: Harry Lee MD Chief Complaint: epi consult HPI APPLICATION PACKAGING CONSULTANT History of Present Illness Gail Stoddard is a 24 year old G2, P1 female with a history of gestational diabetes that presents at 39 weeks for elective repeat low-transverse with tubal ligation. Patient states that she has been having some contractions this morning. Denies any loss of fluid or bloody show. Besides the gestational diabetes and no other complications during . Present Details : 3 Para: 1 Labs Rubella: Immune RPR: Negative GBS: Unknown Specific History Indications for Section: Elective and Repeat Review of Systems 2 General: Reports: 10 or more systems reviewed and unremarkable except in HPI and below Const: Denies: fever(s), chills or fatigue Eyes: Denies: change in vision ENMT: Reports: change in hearing and nasal congestion; Denies: throat pain, ear or mastoid pain or nasal discharge Card: Denies: chest pain, palpitations or lightheadedness Resp: Reports: non-productive cough; Denies: dyspnea or wheezing GI: Reports: vomiting; Denies: abdominal pain, nausea, diarrhea or constipation : Denies: flank pain, difficulty voiding, dysuria or urinary frequency Musc: Denies: neck pain or joint pain Skin/Breast: Denies: rash Neuro: Denies: headache(s), numbness in extremities or weakness in extremities Medications/Allergies Home Medications Medication Instructions Recorded Confirmed Last Taken Type cetirizine 10 mg tablet (Zyrtec) 10 mg PO DAILY PRN allergy 04/18/24 09/05/24 Unknown Rx symptoms #20 tabs fluticasone propionate 50 2 spray intranasal DAILY PRN 04/18/24 09/05/24 Unknown Rx mcg/actuation nasal allergy symptoms #16 grams spray,suspension (Flonase Allergy Relief) guaifenesin 200 mg tablet 200 mg PO QID PRN cough #60 tabs 04/18/24 09/05/24 Unknown Rx Allergies Allergy/AdvReac Type Severity Reaction Status Date / Time ibuprofen Allergy Unknown ADR-Halluci Verified 09/05/24 05:53 nating History History History 2 2 Term Miscarriages/Ectopic Living Children 1 Vitals/I&O/Wt Last Vital Signs Temp 98.4 F 09/05/24 05:20 Pulse 83 09/05/24 06:03 Resp 18 09/05/24 05:20 BP 117/74 09/05/24 06:03 O2 Del Method Room Air 09/05/24 05:50 Weight last 48 hrs Weight 77.111 kg Physical Exam 2 Const: COMMON NORMALS: no acute distress, patient oriented x3 and alert HENMT: COMMON NORMALS: normocephalic and moist oral mucous membranes HEAD & SCALP: normocephalic Neck/C-Spine: COMMON NORMALS: no JVD Resp: COMMON NORMALS: normal respiratory effort and clear to auscultation bilaterally AUSCULTATION: clear to auscultation bilaterally Cardio: COMMON NORMALS: no JVD, regular rate and regular rhythm RATE: r egular rate RHYTHM: regular rhythm GI: OTHER: Gravid uterus Extremity: COMMON NORMALS: no clubbing, cyanosis or edema Neuro: COMMON NORMALS: patient oriented x3 and moves all extremities S ENSORIUM/ORIENTATION: Yes alert Psych: COMMON NORMALS: mental status grossly normal and normal affect Skin: COMMON NORMALS: no rashes or lesions noted Data 09/05/24 05:36 Results Labs OB ([facility]): 2 Obstetrics US/Biophysical Profile Blood Type O Positive 09/05/24 Antibody Screen Negative 09/05/24 Hct 32.7 % (36-47) L 09/05/24 Hgb 10.50 g/dL (11.27-16.99) L 09/05/24 Rho(D) Type Rh positive 09/05/24 Plt Count 335 10^3/cmm (157-399) 09/05/24 Uric Acid 3.6 mg/dL (2.4-5.7) 05/24/23 A&P Assessment and plan (1) Gestational diabetes mellitus (GDM) affecting second : The patient has been well-controlled throughout her and was able to make it to full-term without any complications. Plan to proceed with elective repeat low-transverse with tubal ligation. (2) 39 weeks gestation of : (3) Normal in third trimester: (4) History of section, low transverse: Attestations 2 Medical Necessity Statement*: Admitted for repeat lower transverse with tubal ligation. Anticipate at least a 2 midnight stay. Coding Level of Care Code Acute Code for Chg Fwd Diagnoses Gestational diabetes mellitus (GDM) affecting second O24.419 39 weeks gestation of Z3A.39 Normal in third trimester Z34.93 History of section, low transverse Z98.891
[2024-09-05] MEDS: famotidine 20 mg/2 mL INJ IVP (06:52)
[2024-09-05] MEDS: metoclopramide 5 mg/mL SDV 2 mL 10 MG IVP (06:52)
[2024-09-05] MEDS: citric acid-sodium citrate 30 mL UDC PO (06:52)
--- NOTE | 2024-09-05 08:51 | P.OP_ITS ---
Operative Report Date of procedure: September 05, 2024 Pre-op diagnosis: Term intrauterine , gestational diabetes Post-op diagnosis: Same Procedure done: Repeat low-transverse with tubal ligation Specimens removed/disposition: Right fallopian tube Surgeon: Srinivasan Lee MD Anesthesia: Spinal Estimated blood loss: 800 IV fluids: 1000 Complications: None Brief History: This is a 24-year-old G2, P1 presented for elective repeat low-transverse C-sec tion with tubal ligation. Procedure: Patient was taken to the operating room where epidural anesthesia was found to be adequate. She was prepped and draped in the normal sterile fashion in a dorsal supine position with a leftward tilt. Skin incision was made with scalpel and carried out to the underlying layer of fascia which was incised in the midline. Fascial incision was then extended laterally with Moreno scissors bilaterally. The superior aspect of the fascial incision was grasped with Mykel clamps elevated and dissected off the rectus muscles with Moreno's. The inferior aspect of the fascial incision was grasped with Marietta's and in likewise manner was elevated and dissected off with Moreno's. Peritoneum was then entered digitally and adhesions of the mesentery was noted to the inferior part of the fascia. This was dissected off the fascia with cautery. Good visualization of the bladder was noted and bladder flap was created. Then bladder blade was then inserted. Uterine incision was then created in a transverse fashion in the lower uterine segment with scalpel and extended digitally. Clear fluid noted. Infant's head was delivered atraumatically nose and mouth suctioned with bulb, cord clamped and cut and handed off to waiting nursing staff. The placenta was then expressed and uterus exteriorized from the abdomen. And cleared of all clots and debris. Uterine incision was then repaired in a running locked fashion with 0 Vicryl. Excellent hemostasis was noted. Tubal ligation was performed starting with the right tube. The tube was collapsed with Rickey's and was dissected off with Voyant device. Left fallopian tube was noted to be surgically absent. Uterus was then returned to the abdomen, gutters were cleared of all clots and debris and wound was irrigated. Peritoneum was then closed in a running fashion with 3-0 Vicryl. Persistent bleeding was noted from when fascia was dissected off the muscle up in the superior portion. Cautery was used but was unsuccessful so Surgicel was implanted but bleeding was still noted. Resist that was placed and pressure was applied. Good hemostasis was noted. Fascia was then closed with 0 Vicryl in a running fashion. Subcutaneous tissue was closed with 3-0 chromic and skin was closed with 4-0 Monocryl on a Adryan needle. The incision was reinforced with Steri-Strips and pressure bandage was over the wound. Sponge, laps, and needle count was correct x2. 2 g Ancef was given prior to the procedure. Patient was taken recovery in stable condition.
--- NOTE | 2024-09-05 09:25 | ANE.PACU2 ---
Inpatient post-anesthesia follow up: Airway intact: Yes Vital signs: Temperature 98.4 F Pulse Rate 78 Respiratory Rate 18 Blood Pressure 103/63 Pulse Oximetry 97 Oxygen Delivery Me thod Room Air Oxygen Flow Rate Fraction of Inspir ed Oxygen Hydration adequate: Yes Nausea and vomiting: No Pain level: 1 Mental status: Baseline
[2024-09-05] MEDS: ketorolac 30 mg/mL INJ IVP ×3 (10:45→21:10)
[2024-09-05] MEDS: docusate sodium 100 mg Capsule PO (17:20)
[2024-09-05] MEDS: ferrous sulfate EC 325 mg Tablet PO (17:20)
[2024-09-05] MEDS: ondansetron 2 mg/ML SDV 2 mL 4 MG IVP (21:10)
[2024-09-05 21:34] LABS: Hematocrit 26.3 % (36-47); Mean Corpuscular HGB Conc 31.9 g/dL (30-55); Mean Corpuscular Hemoglobin 27.7 pg (27-33); Mean Corpuscular Volume 86.8 fl (85-98); Platelet Count 228 10^3/cmm (157-399); Red Blood Count 3.03 10^6/uL (3.85-5.65); White Blood Count 8.29 10^3/uL (3.29-11.43)
[2024-09-06 06:05] VITALS: BP 127/72; PULSE 89; TEMP 36.1
[2024-09-06] MEDS: HYDROcodone-acetaminophen 5-325 mg Tablet PO ×3 (06:15→18:16)
--- NOTE | 2024-09-06 07:52 | P.PN_ITS ---
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 The patient has no concerns today. There are no nursing concerns. Patient states her pain is well-controlled. The patient is up ambulating and urinating without difficulty. Patient reports that breast- feeding is going well. Vital signs have been stable. Labor: Amniotic Membrane Status: Intact Monitor Mode: External C ontraction Pattern: Irregular Status: Category I Post /CS: Patient comments OB post-: no complaints Joffre baby status: doing well feeding status: exclusively breast feeding Vitals/I&O/Wt Last Vital Signs Temp 97.0 F L 09/06/24 06:05 Pulse 89 09/06/24 06:05 Resp 17 09/05/24 17:45 BP 127/72 09/06/24 06:05 Pulse Ox 98 09/05/24 13:30 O2 Del Method Room Air 09/05/24 05:50 09/05/24 09/06/24 09/06/24 22:59 06:59 14:59 Output Total 100 / 1250 Balance -100 / 1950 Weight last 48 hrs Weight 77.111 kg Physical Exam 2 Const: COMMON NORMALS: no acute distress, patient oriented x3 and alert HENMT: COMMON NORMALS: normocephalic and moist oral mucous membranes HEAD & SCALP: normocephalic Neck/C-Spine: COMMON NORMALS: no JVD Resp: COMMON NORMALS: normal respiratory effort and clear to auscultation bilaterally AUSCULTATION: clear to auscultation bilaterally Cardio: COMMON NORMALS: no JVD, regular rate and regular rhythm RATE: r egular rate RHYTHM: regular rhythm Extremity: COMMON NORMALS: no clubbing, cyanosis or edema Neuro: COMMON NORMALS: patient oriented x3 and moves all extremities S ENSORIUM/ORIENTATION: Yes alert Psych: COMMON NORMALS: mental status grossly normal and normal affect Skin: COMMON NORMALS: no rashes or lesions noted GENERAL SKIN EXAM: no rashes or lesions noted Urinary Catheter Management: Hogan: Cath Placed During This Visit: yes, but has since been removed by the nurse Reason for Continuing Indwelling Catheter: Decision to DC Catheter Urinary Catheter Date of Insertion: 09/05/24 Urinary Catheter Time of Insertion: 07:18 Date Urinary Catheter Removed: 09/05/24 Time Urinary Catheter Discontinued: 15:00 Data 09/05/24 21:24 A&P Assessment and plan (1) delivery, delivered, current hospitalization: Continue with routine care. Attestations 2 Medical Necessity Statement*: Anticipate at least a 2 midnight stay. Coding Level of Care Code Acute Code for Chg Fwd Diagnoses delivery, delivered, current hospitalization O82
[2024-09-06] MEDS: docusate sodium 100 mg Capsule PO ×2 (09:12→18:14)
[2024-09-06] MEDS: ferrous sulfate EC 325 mg Tablet PO ×2 (09:12→18:14)
[2024-09-06] MEDS: PRENATAL VIT NO.130/IRON/FOLIC 1 EACH TABLET PO (09:12)
[2024-09-06 16:11] VITALS: BP 120/69; PULSE 96
[2024-09-06 20:23] VITALS: BP 123/82; PULSE 89
[2024-09-06 21:00] VITALS: TEMP 36.7
[2024-09-07 00:17] VITALS: BP 146/86; PULSE 86
[2024-09-07] MEDS: HYDROcodone-acetaminophen 5-325 mg Tablet PO ×2 (00:19→06:02)
[2024-09-07 04:00] VITALS: BP 147/90; PULSE 64; RESP 17; TEMP 36.6
--- NOTE | 2024-09-07 08:17 | PM.OBGYDC ---
Discharge Providers LABORATORY CHEMICAL ASSISTANT Date of Admission: 09/05/24 05:13 Date of Discharge: 09/07/24 Attending Provider at Admission: Srinivasan Lee MD Attending Provider at Discharge: Srinivasan Lee MD Primary Care Provider: Srinivasan Lee MD Diagnoses at Discharge Discharge Diagnosis (1) delivery, delivered, current hospitalization: Status: Acute Reason for Visit Reason for Visit: epi consult Hospital Course Hospital Course This is a 24-year-old G3, P2 that presented for repeat low-transverse extremity with ligation. Patient underwent operation without any difficulties. The patient had a history of gestational diabetes that was well-controlled with diet. No further sugar concerns after delivery. care was unremarkable. Patient's pain has been well-controlled. Vital signs have been stable. Information Peripartum Data: Infant Delivery Method: complications: none Physical Exam Const: COMMON NORMALS: no acute distress, patient oriented x3 and alert HENMT: COMMON NORMALS: normocephalic and moist oral mucous membranes HEAD & SCALP: normocephalic Neck/C-Spine: COMMON NORMALS: no JVD Resp: COMMON NORMALS: normal respiratory effort and clear to auscultation bilaterally AUSCULTATION: clear to auscultation bilaterally Cardio: COMMON NORMALS: no JVD, regular rate and regular rhythm RATE: regular rate RHYTHM: regular rhythm : OTHER: Uterus is firm and below umbilicus Extremity: COMMON NORMALS: no clubbing, cyanosis or edema Neuro: COMMON NORMALS: patient oriented x3 and moves all extremities SENSORIUM/ORIENTATION: Yes alert Psych: COMMON NORMALS: mental status grossly normal and normal affect Skin: COMMON NORMALS: no rashes or lesions noted GENERAL SKIN EXAM: no rashes or lesions noted WOUNDS: Yes surgical site OTHER: Incision is clean dry and intact. Urinary Catheter Management: Hogan: Cath Placed During This Visit: yes, but has since been removed by the nurse Reason for Continuing Indwelling Catheter: Decision to DC Catheter Urinary Catheter Date of Insertion: 09/05/24 Urinary Catheter Time of Insertion: 07:18 Date Urinary Catheter Removed: 09/05/24 Time Urinary Catheter Discontinued: 15:00 History History History 2 Term Miscarriages/Ectopic Living Children 1 Discharge Data Studies Completed and Pending Pending at discharge Category Date Time Status Pathology: Surgical [PTH] Routine Pth 09/05/24 14:54 Received Laboratory Results WBC 8.29 10^3/uL (3.29-11.43) 09/05/24 21:24 RBC 3.03 10^6/uL (3.85-5.65) L 09/05/24 21:24 Hgb 8.40 g/dL (11.27-16.99) L 09/05/24 21:24 Hct 26.3 % (36-47) L 09/05/24 21:24 MCV 86.8 fl (85-98) 09/05/24 21:24 MCH 27.7 pg (27-33) 09/05/24 21:24 MCHC 31.9 g/dL (30-55) 09/05/24 21:24 RDW 16.0 % (12.1-15.1) H 09/05/24 21:24 Plt Count 228 10^3/cmm (157-399) D 09/05/24 21:24 MPV 10.0 fL (7.4-10.4) 09/05/24 21:24 Neut % (Auto) 69.0 % 09/05/24 05:36 Lymph % (Auto) 22.0 % 09/05/24 05:36 Caldwell % (Auto) 7.9 % 09/05/24 05:36 Eos % (Auto) 0.8 % 09/05/24 05:36 Baso % (Auto) 0.1 % 09/05/24 05:36 Neut # (Auto) 5.96 10^3/uL (1.8-7.7) 09/05/24 05:36 Lymph # (Auto) 1.9 10^3/uL (0.8-4.8) 09/05/24 05:36 Caldwell # (Auto) 0.7 10^3/uL (0.2-0.9) 09/05/24 05:36 Eos # (Auto) 0.1 10^3/uL (0.0-0.8) 09/05/24 05:36 Baso # (Auto) 0.0 10^3/uL (0.0-0.1) 09/05/24 05:36 Nucleated RBC % (auto) 0 % 09/05/24 05:36 Nucleated RBCs # 0.0 /100WBC 09/05/24 05:36 POC Glucose 104 mg/dL (70-110) 09/05/24 06:20 Blood Type O Positive 09/05/24 05:36 Rho(D) Type Rh positive 09/05/24 05:36 Antibody Screen Negative 09/05/24 05:36 Vitals Last Vital Signs Temp 97.8 F 09/07/24 04:00 Pulse 64 09/07/24 04:00 Resp 17 09/07/24 04:00 BP 147/90 09/07/24 04:00 Pulse Ox 98 09/05/24 13:30 O2 Del Method Room Air 09/05/24 05:50 Results Labs OB ([facility]): Obstetrics US/Biophysical Profile 08/27/24 Blood Type O Positive 09/05/24 Antibody Screen Negative 09/05/24 Hct 26.3 % (36-47) L 09/05/24 Hgb 8.40 g/dL (11.27-16.99) L 09/05/24 Rho(D) Type Rh positive 09/05/24 Plt Count 228 10^3/cmm (157-399) 09/05/24 Uric Acid 3.6 mg/dL (2.4-5.7) 05/24/23 Discharge Plan Discharge Patient Disposition: Home Condition: Stable Prescriptions: New hydrocodone-acetaminophen 5-325 mg Tablet 1 - 2 tab PO Q4H PRN (Reason: Moderate To Severe Pain) Qty: 20 0RF Vitamin 27 mg iron- 800 mcg Tablet 1 tab PO DAILY Qty: 90 0RF Continued guaifenesin 200 mg tablet 200 mg PO QID PRN (Reason: cough) Qty: 60 0RF cetirizine [Zyrtec] 10 mg tablet 10 mg PO DAILY PRN (Reason: allergy symptoms) Qty: 20 0RF fluticasone propionate [Flonase Allergy Relief] 50 mcg/actuation spray,suspension 2 spray intranasal DAILY PRN (Reason: allergy symptoms) Qty: 16 0RF Rx Instructions: administer into each nostril Discharge Orders: Discharge Order (Routine); Ordered 09/07/24 Ordered By: Srinivasan Lee Referrals: Srinivasan Lee MD [Physician] - 1 week Discharge Diet: Usual diet Discharge Activity: Limit activity as instructed Patient Instructions: Depression (DC), Opioid Safety (DC), Preeclampsia and Eclampsia After Delivery (GEN), Hemorrhage (DC), OB - Eros/Ronald, OB Discharge Report, OB Food/Drug Interaction Guide, OB Care at Home, Opioid Safety, Abnormal Bleeding Discharge Attestations LABORATORY CHEMICAL ASSISTANT Time Spent in Discharge Care*: less than 30 min Coding Level of Care Code Acute Code for Chg Fwd Diagnoses delivery, delivered, current hospitalization O82
[2024-09-07] MEDS: PRENATAL VIT NO.130/IRON/FOLIC 1 EACH TABLET PO (08:28)
[2024-09-07] MEDS: docusate sodium 100 mg Capsule PO (08:28)
[2024-09-07] MEDS: ferrous sulfate EC 325 mg Tablet PO (08:28)
[2024-09-07 08:31] VITALS: BP 133/62; PULSE 82
[2024-09-07 09:45] VITALS: RESP 16; TEMP 36.8
[2024-09-07 10:16] VITALS: BP 133/62; PULSE 82; RESP 16; TEMP 36.8; O2SAT 98
== END 2024-09-07 10:05 | disposition home or self-care (01) | DRG 785 ==
PROVIDERS: Admitting Provider Family Medicine; PCP Family Medicine; Visit Provider Family Medicine
PROC: 10D00Z1 Extraction of Products of Conception, Low, Open Approach (ICD-10-PCS; CPT 59514; principal; 2024-09-05 07:00)
DX: O24.420 Gestational diabetes mellitus in childbirth, diet controlled (principal); Z3A.39 39 weeks gestation of pregnancy; Z37.0 Single live birth; O34.211 Maternal care for low transverse scar from previous cesarean delivery; N85.8 Other specified noninflammatory disorders of uterus; Z30.2 Encounter for sterilization
CPT/HCPCS: 36415; 36416; 51702; 59409; 82962; 85025; 85027; 86850; 86900; 88302; 88305; 96374; 96376; 98960; J1885; J2274; J2371; J2405; J2765; J3010; J3490; J7120